=== PATIENT | female | born 1960 | race Caucasian/White ===

== ENCOUNTER → 2019-10-24 | Outpatient (CLI) | payer BC | LOC: CARD 11:38 | PROVIDERS: ATTEND Internal Medicine Interventional Cardiology | DX: Z01.810 Encounter for preprocedural cardiovascular examination (principal); I07.1 Rheumatic tricuspid insufficiency; I10 Essential (primary) hypertension; E78.01 Familial hypercholesterolemia | CPT/HCPCS: 93306 ==

== ENCOUNTER → 2019-10-25 | Outpatient (CLI) | payer BC ==
[~2019-10-25] VITALS: Ht 147 cm; Wt 72.0 kg
[~2019-10-25] MED LIST: CATHETER FLUSH 10 ML SYR IV PRN; REGADENOSON 0.4 MG/5 ML SYR (LEXISCAN) IV ONE
[2019-10-25 09:25] VITALS: BP 132/75
--- NOTE | 2019-10-29 14:44 | Cardiology Stress Test Report ---
Stress Test Report Type of NM Stress Test: Test Type: LEXISCAN 0.4MG/5ML Date of Procedure/Referring: Date of Procedure: Oct 25, 2019 PCP Sherice Laurent MD Admitting Physician Everette Newberry DO Indications: chest heaviness, shortness of breath Baseline Heart Rate: 67 Baseline Blood Pressure: Blood Pressure Systolic: 132 Blood Pressure Diastolic: 75 Baseline EKG: Baseline EKG: sinus rhythm Summary & Conclusion: Summary: The patient was brought to the stress lab after informed consent was taken. Stress test was performed according to the Lexiscan protocol. 0.4 mg of IV Lexiscan was given. Low-grade exercise was performed. Baseline EKG showed sinus rhythm at at 67 BPM, blood pressure 132/75 mmHg. Maximum heart rate of 79 bpm and blood pressure of 118/70 mmHg. Patient did not have any chest pain, arrhythmias or ST segment changes during the stress test. 10.45 mCi of Myoview were given for rest imaging and 32.4 mCi of Myoview given for stress imaging. Transient ischemic dilatation score 0.96, EF 74 percent. Normal wall motion. Normal myocardial perfusion imaging during rest and stress. Conclusion: Pharmacological stress test was negative for ischemia. Normal LV function with no wall motion abnormalities. Normal myocardial perfusion imaging during rest and stress. Sherice LAURENT MD Oct 29, 2019 14:43
== END ==
LOC: CARD 08:30
PROVIDERS: ATTEND Internal Medicine Interventional Cardiology
DX: Z01.810 Encounter for preprocedural cardiovascular examination (principal); E78.01 Familial hypercholesterolemia; I10 Essential (primary) hypertension; R07.89 Other chest pain; R06.02 Shortness of breath
CPT/HCPCS: 78452; 93017; A9502